=== PATIENT | male | born 1990 | race African-American/Black ===

== ENCOUNTER 2019-04-24 09:23 | Emergency (ER) | payer SELFPAY ==
[2019-04-24] MEDS ORDERED: Ondansetron ODT 8 MG TAB ONE (09:46)
== END 2019-04-24 09:50 | disposition home or self-care (01) ==
LOC: SCSER 09:23
DX: R11.2 Nausea with vomiting, unspecified (principal); R19.7 Diarrhea, unspecified
CPT/HCPCS: 99283

== ENCOUNTER 2019-08-05 11:09 | Emergency (ER) | payer SELFPAY | END 2019-08-05 12:15 | disposition home or self-care (01) | LOC: SCSER 11:09 | DX: M79.645 Pain in left finger(s) (principal); E11.9 Type 2 diabetes mellitus without complications | CPT/HCPCS: 99283 ==